=== PATIENT | female | born 1960 | race Caucasian/White ===

== ENCOUNTER → 2017-04-02 | Outpatient (CLI) | payer OTHER ==
[~2017-04-02] VITALS: Ht 160 cm; Wt 59.9 kg
[~2017-04-02] MED LIST: LEVSIN0.125 MG PO; PROAIR HFA8.5 GM IH
== END | disposition home or self-care (01) ==
LOC: AMB 07:00
PROC: 0DJD8ZZ Inspection of Lower Intestinal Tract, Via Natural or Artificial Opening Endoscopic (ICD-10-PCS; principal; 2017-04-02)
DX: Z12.11 Encounter for screening for malignant neoplasm of colon (principal); K64.8 Other hemorrhoids; Z85.828 Personal history of other malignant neoplasm of skin; K58.0 Irritable bowel syndrome with diarrhea; R05 Cough